=== PATIENT | male | born 1950 | race Caucasian/White ===

== ENCOUNTER 2017-10-08 15:07 | Inpatient (IN) | payer MEDICARE, OTHER ==
[2017-10-08] MEDS ORDERED: MIDAZOLAM 1 MG/ML 2 ML INJ (15:57)
[2017-10-08] MEDS ORDERED: FENTAnyl 50 MCG/ML VIAL (15:57)
[2017-10-08] MEDS ORDERED: NITROGLYCERIN (IC) 100 MCG/ML INJ (16:30)
[2017-10-08] MEDS ORDERED: VERAPAMIL 5 MG INJ (16:30)
[2017-10-08] MEDS ORDERED: CLOPIDOGREL 300 MG TAB (16:36)
[2017-10-08] MEDS ORDERED: IODIXANOL LOCM 100 ML BTL (16:42)
[2017-10-08] MEDS ORDERED: BIVALIRUDIN 250MG /NS 50 ML 50 ML IVPB ×2 (16:42→17:26)
[2017-10-08] MEDS: SOD CHLORIDE 0.9% 1,000 ML IV ×2 (18:01→21:07)
[2017-10-08] MEDS ORDERED: morphine 2 MG INJ IV (18:30)
[2017-10-08] MEDS: METOPROLOL 50 MG TAB PO (21:00)
[2017-10-08] MEDS: ATORVASTATIN 80 MG TAB PO (21:07)
[2017-10-09 05:14] LABS: ADD MAN DIFF? NO
[2017-10-09 05:24] LABS: WHITE BLOOD COUNT 11.8 10^3/ul (4.8-10.8)
[2017-10-09 05:24] LABS: BASOPHILS % 0.3 % (0.0-2.0); EOSINOPHILS % 0.3 % (0.0-7.0); HEMATOCRIT 37.2 % (42.0-52.0); HEMOGLOBIN 13.1 g/dl (14.0-18.0); LYMPHOCYTES # 2.3 10^3/ul (0.8-2.9); LYMPHOCYTES % 19.4 % (15.0-51.0); MEAN CORPUSCULAR HEMOGLOBIN 28.9 pg (29.0-33.0); MEAN CORPUSCULAR HGB CONC 35.2 g/dl (32.0-37.0); MEAN CORPUSCULAR VOLUME 81.9 fl (82.0-101.0); MONOCYTE # 1.1 10^3/ul (0.3-0.9); NEUTROPHIL # 8.4 10^3/ul (1.6-7.5); NEUTROPHILS % 70.6 % (39.0-77.0); PLATELET COUNT 250 10^3/UL (140-415); RED BLOOD COUNT 4.54 10^6/ul (4.70-6.10); RED CELL DISTRIBUTION WIDTH 13.2 % (11.5-14.5)
[2017-10-09 05:44] LABS: ANION GAP 13 (8-16); BLOOD UREA NITROGEN 17 mg/dl (7-20); CALCIUM 8.5 mg/dl (8.4-10.2); CARBON DIOXIDE 26 mmol/L (21-31); CHLORIDE 106 mmol/L (97-110); CREATININE 1.08 mg/dl (0.61-1.24); GLUCOSE 102 mg/dl (70-220); POTASSIUM 3.4 mmol/L (3.5-5.1); SODIUM 142 mmol/L (135-144)
[2017-10-09] MEDS ORDERED: POTASSIUM CHLORIDE 20 MEQ POWDER FOR ORAL SOLN PO (09:00)
[2017-10-09] MEDS: METOPROLOL 50 MG TAB PO (09:12)
[2017-10-09] MEDS: ASPIRIN 81 MG TAB PO (09:13)
[2017-10-09] MEDS: POTASSIUM CHLORIDE (SR) 20 MEQ TAB PO (09:13)
[2017-10-09] MEDS: CLOPIDOGREL 75 MG TAB PO (09:13)
== END 2017-10-09 15:16 | disposition home or self-care (01) | DRG 247 ==
LOC: SDS 15:07 → REC 18:03 → ICU 18:14
PROC: 027035Z Dilation of Coronary Artery, One Artery with Two Drug-eluting Intraluminal Devices, Percutaneous Approach (ICD-10-PCS; principal; 2017-10-08 16:05)
PROC: 02C03ZZ Extirpation of Matter from Coronary Artery, One Artery, Percutaneous Approach (ICD-10-PCS; 2017-10-08 16:05)
PROC: 4A023N7 Measurement of Cardiac Sampling and Pressure, Left Heart, Percutaneous Approach (ICD-10-PCS; 2017-10-08 16:05)
PROC: B211YZZ Fluoroscopy of Multiple Coronary Arteries using Other Contrast (ICD-10-PCS; 2017-10-08 16:05)
PROC: 3E073PZ Introduction of Platelet Inhibitor into Coronary Artery, Percutaneous Approach (ICD-10-PCS; 2017-10-08 16:05)
DX: I21.4 Non-ST elevation (NSTEMI) myocardial infarction (principal); F03.90 Unspecified dementia, unspecified severity, without behavioral disturbance, psychotic disturbance, mood disturbance, and anxiety; I25.10 Atherosclerotic heart disease of native coronary artery without angina pectoris; I12.9 Hypertensive chronic kidney disease with stage 1 through stage 4 chronic kidney disease, or unspecified chronic kidney disease; N18.9 Chronic kidney disease, unspecified; E78.5 Hyperlipidemia, unspecified; F17.210 Nicotine dependence, cigarettes, uncomplicated; K21.9 Gastro-esophageal reflux disease without esophagitis; E87.6 Hypokalemia; D64.9 Anemia, unspecified; D75.89 Other specified diseases of blood and blood-forming organs; Z79.82 Long term (current) use of aspirin; Z79.02 Long term (current) use of antithrombotics/antiplatelets; Z98.61 Coronary angioplasty status; Z95.1 Presence of aortocoronary bypass graft
CPT/HCPCS: 80048; 83735; 85025; 87081; 93005; 93459